=== PATIENT | male | born 1955 | race Caucasian/White ===

== ENCOUNTER 2018-07-20 12:46 | Emergency (ER) | payer OTHER ==
--- NOTE | 2018-07-20 13:27 | CPEKG ---
Test Reason : OPEN Blood Pressure : / mmHG Vent. Rate : 069 BPM Atrial Rate : 069 BPM P-R Int : 176 ms QRS Dur : 117 ms QT Int : 429 ms P-R-T Axes : 040 069 068 degrees QTc Int : 460 ms Sinus rhythm Incomplete right bundle branch block Confirmed by Andrea Zepeda ([id number]) on 07/20/2018 1:27:03 PM Referred By: PHYSICIAN ED Confirmed By:Andrea Zepeda
[2018-07-20] MEDS ORDERED: NS 1,000 ML IV ONE (13:33)
[2018-07-20] MEDS ORDERED: ONDANSETRON 4 MG/2 ML VIAL IVP ONE (13:33)
--- NOTE | 2018-07-20 13:33 | EDPHY ---
H & P Stated Complaint: nausea, diaphoresis Source: Patient, Family Exam Limitations: No limitations - Personal History Current Tetanus/Diphtheria Vaccine: Unsure Current Tetanus Diphtheria and Acellular Pertussis (TDAP): Unsure - Medical/Surgical History Hx Asthma: No Hx Chronic Respiratory Disease: No Hx Diabetes: No Hx Cardiac Disease: No Hx Renal Disease: No Hx Cirrhosis: No Hx Alcoholism: No Hx HIV/AIDS: No Hx Splenectomy or Spleen Trauma: No Other PMH: HTN, hyperlipidemia, GERD - Family History Significant Family History: Heart disease - Social History Smoking Status: Former smoker Alcohol Use: None Drug Use: None Time Seen by Provider: 07/20/18 13:26 HPI/ROS: CHIEF COMPLAINT: Nausea, anxiety HISTORY OF PRESENT ILLNESS: 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 The hyperventilating and tingling have resolved but he still has mild nausea. No vomiting. No diarrhea. No fevers. No recent illness. He was concerned that he may be having a stroke. He did not have any focal weakness or deficits. No vertigo. No focal numbness. Severity: Moderate Modifying factors: Resolving REVIEW OF SYSTEMS: Constitutional: denies: chills, fever, recent illness, recent injury EENTM: denies: blurred vision, double vision, nose congestion Respiratory: denies: cough, shortness of breath Cardiac: denies: chest pain, irregular heart rate, lightheadedness, palpitations Gastrointestinal/Abdominal: denies: abdominal pain, diarrhea, nausea, vomiting, blood streaked stools Genitourinary: denies: dysuria, frequency, hematuria, pain Musculoskeletal: denies: joint pain, muscle pain Skin: denies: lesions, rash, jaundice, bruising Neurological: denies: headache, numbness, paresthesia, tingling, dizziness, weakness Hematologic/Lymphatic: denies: blood clots, easy bleeding, easy bruising Immunologic/allergic: denies: HIV/AIDS, transplant 10 systems reviewed and negative except as noted EXAM: GENERAL: Well-appearing, of the obese and in no acute distress. HEAD: Atraumatic, normocephalic. EYES: Pupils equal round and reactive to light, extraocular movements intact, sclera anicteric, conjunctiva are normal. No nystagmus ENT: TMs normal, nares patent, oropharynx clear without exudates. Moist mucous membranes. NECK: Normal range of motion, supple without lymphadenopathy or JVD. LUNGS: Breath sounds clear to auscultation bilaterally and equal. No wheezes rales or rhonchi. HEART: Regular rate and rhythm without murmurs, rubs or gallops. ABDOMEN: Soft, nontender, normoactive bowel sounds. No guarding, no rebound. No masses appreciated. BACK: No CVA tenderness, no spinal tenderness, step-offs or deformities EXTREMITIES: Normal range of motion, no pitting or edema. No clubbing or cyanosis. NEUROLOGICAL: NIH stroke score 0, Cranial nerves II through XII grossly intact. Normal speech, normal gait. 5/5 strength, normal movement in all extremities, normal sensation, normal reflexes PSYCH: Normal mood, normal affect. SKIN: Warm, dry, normal turgor, no visible rashes or lesions. (Andrea Zepeda) Constitutional: Initial Vital Signs Temperature (C) 36.3 C 07/20/18 12:46 Heart Rate 74 07/20/18 12:46 Respiratory Rate 16 07/20/18 12:46 Blood Pressure 147/70 H 07/20/18 12:46 O2 Sat (%) 99 07/20/18 12:46 O2 Delivery Mode Room Air Allergies/Adverse Reactions: No Known Allergies Allergy (Unverified 07/20/18 12:57) Home Medications: Medication Instructions Recorded HCTZ (*) 07/20/18 Lisinopril 07/20/18 Omeprazole 07/20/18 Medical Decision Making - Diagnostics Imaging: Discussed imaging studies w/ order caller Radiologist - Diagnostics EKG Interpretation: An EKG obtained and was read and documented in trace view. Please see trace view for full reading and report. Sinus rhythm, no acute ischemic changes ( Andrea Zepeda) ED Course/Re-evaluation: Patient is feeling much better after Ativan. He is no longer nauseous or anxious. No shortness of breath or diaphoresis. We discussed his lab work and x-ray which are reassuring. He has not had a cough for fever and does not think that he has bronchitis. His D-dimer was rejected. 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 Will repeat the D- dimer. Also engaged in shared decision making and agreed to repeat the troponin 3 hr after the 1st. This will be at 5:00 p.m.. Care transferred to Dr. Fabio Chawla at 3:00 p.m.. (Andrea Zepeda) Differential Diagnosis: Partial list of the Differential diagnosis considered include but were not limited to; anxiety, acute coronary disease, PE, and although unlikely based on the history and physical exam, I also considered CVA, infection. (Andrea Zepeda) Other Provider: Care assumed at 3:00 p.m., CT angio chest if D-dimer is greater than 0.61, otherwise discharged home if repeat troponin is negative. 1620: Patient re-evaluated, his nausea and tingling in his hands have dissipated. Labs and imaging discussed with the patient. He only has a sporadic cough, afebrile, normal oxygen, normal lung exam. Although the patient and family had some understanding from Dr. Zepeda that they might need antibiotics for "bronchitis" read on chest x-ray by radiologist , I do not think antibiotics are indicated at this time and the patient family are in agreement. Plan for discharge if repeat troponin is negative. Low pretest suspicion for pulmonary embolism. (Fabio Chawla) - Data Points Laboratory Results: Laboratory Results 07/20/18 13:12 07/20/18 13:12 Medications Given: Discontinued Medications Sodium Chloride (Ns) 1,000 mls @ 0 mls/hr IV EDNOW ONE; Wide Open PRN Reason: Protocol Stop: 07/20/18 13:34 Last Admin: 07/20/18 14:04 Dose: 1,000 mls Lorazepam (Ativan) 1 mg PO EDNOW ONE Stop: 07/20/18 13:44 Last Admin: 07/20/18 14:04 Dose: 1 mg Ondansetron HCl (Zofran) 4 mg IVP EDNOW ONE Stop: 07/20/18 13:34 Last Admin: 07/20/18 14:04 Dose: 4 mg Ondansetron HCl (Zofran Odt 4 Mg Prepack#2) 1 btl TAKEHOME EDNOW ONE Stop: 07/20/18 17:50 Last Admin: 07/20/18 17:52 Dose: 1 btl Point of Care Test Results: Chemistry 07/20/18 07/20/18 17:01 14:04 POC Troponin I 0.00 ng/mL ng/mL 0.00 ng/mL ng/mL (0.00-0.08) (0.00-0.08) Departure - Departure Disposition: Home, Routine, Self-Care Clinical Impression: Nausea Condition: Good Instructions: Ondansetron (By mouth), Acute Nausea and Vomiting (ED) Referrals: NONE *PRIMARY CARE P,. [Primary Care Provider] - As per Instructions ([facility], Kelley Reilly or your PA.)
[2018-07-20 13:43] LABS: PLATELET COUNT 334 10^3/uL (150-400)
[2018-07-20] MEDS ORDERED: LORazepam 1 MG TAB PO ONE (13:43)
[2018-07-20 14:54] LABS: INR 1.08 (0.83-1.16); PROTIME(PATIENT) 13.6 SEC (12.0-15.0)
[2018-07-20] MEDS ORDERED: ONDANSETRON 4MG PREPACK#2 BTL TAKEHOME ONE ×2 (17:49→17:50)
[2018-07-20 17:54] VITALS: BP 136/78
== END 2018-07-20 17:54 | disposition home or self-care (01) ==
LOC: EDBD 12:46
DX: R11.0 Nausea (principal); F41.9 Anxiety disorder, unspecified
CPT/HCPCS: 84484-ER; 96374; J2405